=== PATIENT | female | born 1965 | race Caucasian/White ===

== ENCOUNTER 2020-07-31 08:40 | Emergency (ER) | payer BC ==
[2020-07-31 08:52] VITALS: RESP 18; TEMP 98.4
--- NOTE | 2020-07-31 09:16 | ED ---
General Adult HPI - General Chief complaint: Shortness of Breath Stated complaint: pneumonia Time Seen by Provider: 07/31/20 09:00 Source: patient, RN notes reviewed, old records reviewed Mode of arrival: ambulatory Limitations: no limitations - History of Present Illness Initial comments: 54-year-old female presenting with cough and dyspnea. Patient was diagnosed with coronavirus approximately one month ago. She states that she subsequently developed a pneumonia that was treated with antibiotics by her primary care physician. She is on her second round of steroids and antibiotics without significant improvement. She denies current fevers. Denies central chest pain. Denies lower extremity pain or swelling. She is currently on cefdinir. She states that she did have an outpatient x-ray confirming pneumonia. Also she is currently on dexamethasone. - Related Data Allergies Allergy/AdvReac Type Severity Reaction Status Date / Time hydrocodone Allergy Rash/Hives Verified 07/31/20 08:52 oxycodone Allergy Rash/Hives Verified 07/31/20 08:52 Review of Systems ROS Statement: Those systems with pertinent positive or pertinent negative responses have been documented in the HPI. ROS Other: All systems not noted in ROS Statement are negative. Past Medical History Past Medical History: Deep Vein Thrombosis (DVT), Fibromyalgia, GERD/Reflux Additional Past Medical History / Comment(s): melanoma - resolved History of Any Multi-Drug Resistant Organisms: None Reported Additional Past Surgical History / Comment(s): foot sx x11, breast augmentation, laparoscopies Past Psychological History: No Psychological Hx Reported Smoking Status: Former smoker Past Alcohol Use History: Occasional Past Drug Use History: None Reported General Exam Limitations: no limitations General appearance: alert, in no apparent distress Head exam: Present: atraumatic, normocephalic Eye exam: Present: normal appearance, PERRL ENT exam: Present: normal exam Neck exam: Present: normal inspection. Absent: tenderness, meningismus Respiratory exam: Present: rhonchi. Absent: respiratory distress Cardiovascular Exam: Present: regular rate, normal rhythm GI/Abdominal exam: Present: soft. Absent: distended, tenderness, guarding Extremities exam: Present: normal inspection. Absent: normal capillary refill, pedal edema, calf tenderness Neurological exam: Present: alert, oriented X3, CN II-XII intact. Absent: motor sensory deficit Psychiatric exam: Present: normal affect, normal mood Skin exam: Present: warm, dry, intact. Absent: cyanosis, diaphoretic Course Vital Signs 07/31/20 07/31/20 08:48 10:32 Temperature 98.4 F Pulse Rate 70 64 Respiratory 18 18 Rate Blood Pressure 114/68 114/75 O2 Sat by Pulse 96 97 Oximetry EKG Findings - EKG Comments: EKG Findings:: EKG normal sinus rhythm, low voltage, rate of 64, PA interval 154, QRS duration 64, QTC 408, no ST segment elevation. Medical Decision Making - Medical Decision Making 54-year-old female with coronavirus, pneumonia, currently on antibiotic steroids, vitamin D, zinc. Patient well-appearing, no respiratory distress, normal oxygenation. CT is negative for pulmonary embolus, shows infiltrate versus mass, patient is instructed on 6 month follow-up. She has a leukocytosis of 14.5 which I suspect is likely related to steroid administration. She is otherwise having normal laboratory testing. She will continue current treatment at home and follow with her primary care physician. She will also follow for repeat imaging in 6 months. - Lab Data Result diagrams: 07/31/20 09:21 07/31/20 09:21 Lab Results 07/31/20 07/31/20 07/31/20 Range/Units 09:21 09:21 09:21 WBC (3.8-10.6) k/uL RBC (3.80-5.40) m/uL Hgb (11.4-16.0) gm/dL Hct (34.0-46.0) % MCV (80.0-100.0) fL MCH (25.0-35.0) pg MCHC (31.0-37.0) g/dL RDW (11.5-15.5) % Plt Count (150-450) k/uL MPV Neutrophils % % Lymphocytes % % Monocytes % % Eosinophils % % Basophils % % Neutrophils # (1.3-7.7) k/uL Lymphocytes # (1.0-4.8) k/uL Monocytes # (0-1.0) k/uL Eosinophils # (0-0.7) k/uL Basophils # (0-0.2) k/uL PT 9.8 (9.0-12.0) sec INR 0.9 (<1.2) APTT 20.1 L (22.0-30.0) sec Sodium 135 L (137-145) mmol/L Potassium 4.4 (3.5-5.1) mmol/L Chloride 103 (98-107) mmol/L Carbon Dioxide 23 (22-30) mmol/L Anion Gap 9 mmol/L BUN 15 (7-17) mg/dL Creatinine 0.65 (0.52-1.04) mg/dL Est GFR (CKD-EPI)AfAm >90 (>60 ml/min/1.73 sqM) Est GFR (CKD-EPI)NonAf >90 (>60 ml/min/1.73 sqM) Glucose 144 H (74-99) mg/dL Plasma Lactic Acid Janes (0.7-2.0) mmol/L Calcium 9.3 (8.4-10.2) mg/dL Total Bilirubin 0.5 (0.2-1.3) mg/dL AST 23 (14-36) U/L ALT 21 (4-34) U/L Alkaline Phosphatase 30 L (38-126) U/L Troponin I <0.012 (0.000-0.034) ng/mL C-Reactive Protein <5.0 (<10.0) mg/L NT-Pro-B Natriuret Pep pg/mL Total Protein 6.3 (6.3-8.2) g/dL Albumin 3.7 (3.5-5.0) g/dL 07/31/20 07/31/20 07/31/20 Range/Units 09:21 09:21 09:21 WBC 14.5 H (3.8-10.6) k/uL RBC 4.53 (3.80-5.40) m/uL Hgb 13.6 (11.4-16.0) gm/dL Hct 39.4 (34.0-46.0) % MCV 86.9 (80.0-100.0) fL MCH 29.9 (25.0-35.0) pg MCHC 34.4 (31.0-37.0) g/dL RDW 13.5 (11.5-15.5) % Plt Count 251 (150-450) k/uL MPV 6.8 Neutrophils % 80 % Lymphocytes % 13 % Monocytes % 4 % Eosinophils % 1 % Basophils % 0 % Neutrophils # 11.7 H (1.3-7.7) k/uL Lymphocytes # 1.9 (1.0-4.8) k/uL Monocytes # 0.6 (0-1.0) k/uL Eosinophils # 0.2 (0-0.7) k/uL Basophils # 0.0 (0-0.2) k/uL PT (9.0-12.0) sec INR (<1.2) APTT (22.0-30.0) sec Sodium (137-145) mmol/L Potassium (3.5-5.1) mmol/L Chloride (98-107) mmol/L Carbon Dioxide (22-30) mmol/L Anion Gap mmol/L BUN (7-17) mg/dL Creatinine (0.52-1.04) mg/dL Est GFR (CKD-EPI)AfAm (>60 ml/min/1.73 sqM) Est GFR (CKD-EPI)NonAf (>60 ml/min/1.73 sqM) Glucose (74-99) mg/dL Plasma Lactic Acid Janes 2.1 H* (0.7-2.0) mmol/L Calcium (8.4-10.2) mg/dL Total Bilirubin (0.2-1.3) mg/dL AST (14-36) U/L ALT (4-34) U/L Alkaline Phosphatase (38-126) U/L Troponin I (0.000-0.034) ng/mL C-Reactive Protein (<10.0) mg/L NT-Pro-B Natriuret Pep 80 pg/mL Total Protein (6.3-8.2) g/dL Albumin (3.5-5.0) g/dL Disposition Clinical Impression: COVID-19, Pneumonia Disposition: HOME SELF-CARE Condition: Good Instructions (If sedation given, give patient instructions): Bacterial Pneumonia (ED), Viral Pneumonia (DC), Coronavirus Disease 2019 (COVID-19) Is patient prescribed a controlled substance at d/c from ED?: No Referrals: Hieu Paul MD [Primary Care Provider] - 1-2 days Time of Disposition: 11:08
[2020-07-31 09:36] LABS: Basophils % (A) 0 %; Eosinophils # (A) 0.2 k/uL (0-0.7); Eosinophils % (A) 1 %; HCT 39.4 % (34.0-46.0); HGB 13.6 gm/dL (11.4-16.0); Lymphocytes # (A) 1.9 k/uL (1.0-4.8); Lymphocytes % (A) 13 %; MCH 29.9 pg (25.0-35.0); MCHC 34.4 g/dL (31.0-37.0); MCV 86.9 fL (80.0-100.0); Mean Platelet Volume 6.8; Monocytes # (A) 0.6 k/uL (0-1.0); Monocytes % (A) 4 %; Neutrophils # (A) 11.7 k/uL (1.3-7.7); Neutrophils % (A) 80 %; Platelet Count 251 k/uL (150-450); RBC 4.53 m/uL (3.80-5.40); RDW 13.5 % (11.5-15.5); WBC 14.5 k/uL (3.8-10.6)
[2020-07-31 09:52] LABS: ALT 21 U/L (4-34); African American GFR (CKD) >90 (>60 ml/min/1.73 sqM); Albumin 3.7 g/dL (3.5-5.0); Anion Gap 9 mmol/L; Blood Urea Nitrogen 15 mg/dL (7-17); Calcium 9.3 mg/dL (8.4-10.2); Carbon Dioxide 23 mmol/L (22-30); Chloride 103 mmol/L (98-107); Glucose 144 mg/dL (74-99); Non-African American GFR(CKD) >90 (>60 ml/min/1.73 sqM); Sodium 135 mmol/L (137-145); Total Bilirubin 0.5 mg/dL (0.2-1.3); Total Protein 6.3 g/dL (6.3-8.2)
[2020-07-31 09:54] LABS: AST 23 U/L (14-36); Alkaline Phosphatase 30 U/L (38-126); Potassium 4.4 mmol/L (3.5-5.1)
[2020-07-31 09:55] LABS: INR 0.9 (<1.2); Prothrombin Time 9.8 sec (9.0-12.0)
[2020-07-31 09:59] LABS: Partial Thromboplastin Time 20.1 sec (22.0-30.0)
[2020-07-31 10:17] LABS: C Reactive Protein <5.0 mg/L (<10.0)
--- NOTE | 2020-07-31 10:30 | CT ---
CT CHEST FOR PULMONARY EMBOLISM. EXAMINATION TYPE: CT angio chest DATE OF EXAM: 07/31/2020 INDICATION: Pneumonia CT DLP: 311.2 mGycm, Automated exposure control for dose reduction was used. CONTRAST: Patient injected with 76 mL of Isovue 370. COMPARISON: TECHNIQUE: CT of the chest is performed on a spiral scan at 2 mm thick sections. Study is performed with intravenous contrast timed for evaluation for pulmonary embolism. This will limit additional po rtions of the evaluation. 3-D MIP images reconstructed by the technologist are reviewed on the compu ter in the coronal and sagittal planes. FINDINGS: No persistent filling defects are evident to suggest an acute pulmonary embolism. No mediastinal or hilar adenopathy enlarged by CT criteria is evident. The ascending aorta diameter at the level of the main pulmonary artery is 3.8 cm. The main pulmonary artery diameter at the bifur cation is 2.7 cm. No suspicious infiltrates are evident. There may be some thickening along the major fissure on the ri t short-term follow-up. This measures 1.2 x 1.7 cm. Series [address] section through the upper abdomen are unremarkable. Bilateral breast prostheses are presen t. IMPRESSIONS: 1. No suspicious acute pulmonary embolism. 2. Some thickening along the major fissure on the right upper lung field. When the patient is stable follow-up can be performed. Findings could be related to an infiltrate. Underlying neoplastic mass is not excluded.
[2020-07-31 11:28] VITALS: BP 119/71; PULSE 61
== END 2020-07-31 11:30 | disposition home or self-care (01) ==
LOC: EC 08:40
DX: U07.1 COVID-19 (principal); J12.82 Pneumonia due to coronavirus disease 2019; M79.7 Fibromyalgia; K21.9 Gastro-esophageal reflux disease without esophagitis; Z86.718 Personal history of other venous thrombosis and embolism; Z87.891 Personal history of nicotine dependence
CPT/HCPCS: 36415; 93005; 83880; 80053; 83605; 84484; 85025; 85610; 85730; 86140; 71275; 99285; Q9967

== ENCOUNTER → 2020-08-17 | Outpatient (CLI) | payer BC ==
--- NOTE | 2020-08-18 11:52 | PE ---
Nuclear medicine PET/CT HISTORY: Lung carcinoma, initial, R 91.8, abnormal CT, lung mass Patient received 11.6 mCi F-18 FDG intravenously in delayed scanning was performed from the skull bas e to the mid thighs. Localization and attenuation correction CT scan was performed. Correlation to prior CT chest dated 07/31/2020 Chest and neck: There is no suspicious hypermetabolic uptake.. Thickening along the major fissure is again noted. There are interstitial changes within the lungs. No suspicious lung mass. No pleural or pericardial effusion. There is no mediastinal, axillar, or hilar adenopathy, no supraclavicular or ce rvical adenopathy. ABDOMEN: There is no evident adrenal mass, no liver mass. There is no retroperitoneal adenopathy or a scites. No suspicious uptake. Osseous structures are within normal limits. IMPRESSION: Benign exam. No suspicious uptake.
== END | disposition home or self-care (01) ==
LOC: RADPETMAIN 08:48
PROVIDERS: ATTEND Family Medicine
DX: R91.8 Other nonspecific abnormal finding of lung field (principal)
CPT/HCPCS: 78815; A9552

== ENCOUNTER → 2020-09-25 | Outpatient (CLI) | payer BC ==
--- NOTE | 2020-09-25 10:01 | MR ---
EXAMINATION TYPE: MR brain wo con DATE OF EXAM: 09/25/2020 COMPARISON: NONE HISTORY: Headache TECHNIQUE: T1-weighted sagittal, T2, FLAIR, and diffusion axial, and T2 coronal coronal views of the brain are submitted. FINDINGS: There is no evidence of acute ischemia. The ventricles, basal cisterns, and sulci overlying the conv exities are consistent with the patient's age. There are a few scattered foci of abnormal signal with in the white matter measuring 5 mm or less which are nonspecific. There is no mass effect. Cerebellar tonsils low-lying position at the level of foramen magnum there is a partially empty sella turcica. Mild prominence of the anterior communicating region best noted on T2 axial image 13. IMPRESSION: 1. No acute intracranial process nonspecific white matter changes most typical remote microvascular i schemia. 2. Low-lying cerebellar tonsils with a partially empty sella or sellar turcica. No tonsillar beaking. 3 nodular prominence the anterior communicating artery. Most likely related to vascular ectasia. Rec ommend MRA poarch of Saenz to exclude tiny aneurysm given patient's symptoms of headaches.
--- NOTE | 2020-09-25 11:34 | ECHOF ---
Referral Reason:R06.09 dyspnea MEASUREMENTS -------- HEIGHT: 165.1 cm WEIGHT: 81.6 kg BP: RVIDd: 3.1 cm (< 3.3) IVSd: 1.0 cm (0.6 - 1.1) LVIDd: 3.7 cm (3.9 - 5.3) LVPWd: 1.4 cm (0.6 - 1.1) IVSs: 1.5 cm LVIDs: 2.4 cm LVPWs: 1.6 cm Ao Diam: 2.8 cm (2.0 - 3.7) AV Cusp: 1.8 cm (1.5 - 2.6) MV EXCURSION: 14.577 mm (> 18.000) MV EF SLOPE: 64 mm/s (70 - 150) EPSS: 0.1 cm MV E Dallin: 0.58 m/s MV DecT: 180 ms MV A Dallin: 0.84 m/s MV E/A Ratio: 0.69 RAP: 5.00 mmHg RVSP: 13.69 mmHg FINDINGS -------- Sinus rhythm. This was a technically good study. LV size, wall thickness and systolic function are normal, with an EF greater than 55%. The left sean tricular size is normal. The right ventricle is normal in size. The left atrial size is normal. The right atrial size is normal. The aortic valve is trileaflet, and appears structurally normal. No aortic stenosis or regurgitation. Mild mitral regurgitation is present. Mild tricuspid regurgitation present. Right ventricular systolic pressure is normal at < 35 mmHg. There is no pulmonic regurgitation present. There is no pericardial effusion. CONCLUSIONS -------- 1. LV size, wall thickness and systolic function are normal, with an EF greater than 55%. 2. The left ventricular size is normal. 3. The right ventricle is normal in size. 4. The left atrial size is normal. 5. The right atrial size is normal. 6. The aortic valve is trileaflet, and appears structurally normal. No aortic stenosis or regurgitati on. 7. Mild mitral regurgitation is present. 8. Mild tricuspid regurgitation present. 9. There is no pericardial effusion. GRAVURE PRESS SET UP OPERATOR: Linnea Stern RDCS
== END | disposition home or self-care (01) ==
LOC: RADECHMAIN 08:29
PROVIDERS: ATTEND Family Medicine
DX: I08.1 Rheumatic disorders of both mitral and tricuspid valves (principal); R93.0 Abnormal findings on diagnostic imaging of skull and head, not elsewhere classified
CPT/HCPCS: 70551; 93306

== ENCOUNTER → 2020-10-18 | Outpatient (CLI) | payer BC ==
--- NOTE | 2020-10-19 02:45 | MR ---
EXAMINATION TYPE: MR angio head wo con DATE OF EXAM: 10/18/2020 COMPARISON: None HISTORY: Abnormal brain MRI, headache. MR angiographic images were obtained of the brain without contrast. There is arterial flow in the anterior middle and posterior cerebral arteries. There is arterial flow in the vertebrobasilar artery system. There is no mass effect. I see no evidence of intracranial ane urysm or neovascularity. I see no evidence of intracranial arterial stenosis. There is arterial flow in both distal vertebral arteries. There is arterial flow in both distal internal carotid arteries. IMPRESSION: Normal MR angiogram of the brain.
== END | disposition home or self-care (01) ==
LOC: RADMRIMAIN 19:32
PROVIDERS: ATTEND Family Medicine
DX: R51.9 Headache, unspecified (principal); R93.0 Abnormal findings on diagnostic imaging of skull and head, not elsewhere classified
CPT/HCPCS: 70544

== ENCOUNTER → 2020-12-31 | Outpatient (CLI) | payer BC ==
[2020-12-31 20:40] LABS: Hemoglobin A1C 5.3 % (4.0-6.0)
[2020-12-31 21:19] LABS: Estradiol 23.6 pg/mL; Luteinizing Hormone 49.2 mIU/mL; T4, Free (Free Thyroxine) 1.2 ng/dL (0.80-1.80)
== END | disposition home or self-care (01) ==
LOC: LABWHC1 08:46
PROVIDERS: ATTEND Nurse Practitioner Family
DX: U07.1 COVID-19 (principal); R68.82 Decreased libido; R63.5 Abnormal weight gain
CPT/HCPCS: 36415; 82670; 83001; 83002; 83036; 84144; 84403; 84439; 84443; 86769